=== PATIENT | female | born 1965 | race African-American/Black ===

== ENCOUNTER 2021-02-23 18:43 | Emergency (ER) | payer MEDICARE ==
[2021-02-23 20:03] VITALS: BP 148/75; PULSE 85; RESP 18; TEMP 98.7
--- NOTE | 2021-02-23 20:03 | ED ---
General Adult HPI - General Stated complaint: ear pain/off balance/sore throat - History of Present Illness Initial comments: 55-year-old female presents to emergency Department with a chief complaint of sore throat and ear pain. Patient also has a first dose of the Covid vaccine about 2 weeks ago. He reports most of the pain is located in the left ear. She does have history of seasonal ALLERGIES and states this feels like it. She took one dose of Claritin with no changes. Patient also reports a sore throat but denies any difficulty swallowing or changes in her voice. Denies any fevers or chills at home. - Related Data Allergies Allergy/AdvReac Type Severity Reaction Status Date / Time aloe vera [From Flexall] Allergy Nausea Verified 02/23/21 20:03 ibuprofen [From Motrin] Allergy Nausea Verified 02/23/21 20:03 menthol [From Flexall] Allergy Nausea Verified 02/23/21 20:03 naproxen [From Naprosyn] Allergy Nausea Verified 02/23/21 20:03 vitamin E (d-alpha Allergy Nausea Verified 02/23/21 20:03 tocopherol) [From Flexall] Review of Systems ROS Statement: Those systems with pertinent positive or pertinent negative responses have been documented in the HPI. ROS Other: All systems not noted in ROS Statement are negative. General Exam Limitations: no limitations General appearance: alert, in no apparent distress Head exam: Present: atraumatic, normocephalic, normal inspection Eye exam: Present: normal appearance, PERRL, EOMI Pupils: Present: normal accommodation ENT exam: Present: normal exam, normal oropharynx (Uvula midline. No tonsillar exudates, erythema or enlargement.), mucous membranes moist, TM's normal bilaterally (Fluid noted behind left tympanic membrane. No signs of otitis media or externa.), normal external ear exam Neck exam: Present: normal inspection, full ROM. Absent: tenderness Respiratory exam: Present: normal lung sounds bilaterally. Absent: respiratory distress Cardiovascular Exam: Present: regular rate, normal rhythm, normal heart sounds Extremities exam: Present: normal inspection, full ROM, normal capillary refill. Absent: tenderness Back exam: Present: normal inspection, full ROM. Absent: tenderness, CVA tenderness (R), CVA tenderness (L) Neurological exam: Present: alert, oriented X3 Psychiatric exam: Present: normal affect, normal mood Skin exam: Present: warm, dry, intact, normal color Course Vital Signs 02/23/21 20:00 Temperature 98.7 F Pulse Rate 85 Respiratory 18 Rate Blood Pressure 148/75 O2 Sat by Pulse 100 Oximetry Medical Decision Making - Medical Decision Making 55-year-old male presents to the emergency department with a chief complaint of ear pain and sore throat. On physical examination, she has fluid behind the left tympanic membrane but no signs of otitis media or otitis externa. Patient appears to have an upper respiratory infection. Covid swap pending. Patient states she does not want to wait for results and she will be notified over the phone. Advised to continue taking [id number] antihistamines. Strict return parameters were thoroughly discussed with patient was understanding and agreeable. Case discussed with Disposition Clinical Impression: Upper respiratory infection Disposition: HOME SELF-CARE Condition: Stable Instructions (If sedation given, give patient instructions): Earache (ED) Additional Instructions: Please return to the Emergency Department if symptoms worsen or any other concerns. Is patient prescribed a controlled substance at d/c from ED?: No Referrals: Nonstaff,Physician [Primary Care Provider] - 1-2 days Time of Disposition: 21:01
== END 2021-02-23 21:14 | disposition home or self-care (01) ==
LOC: EC 18:43
DX: J06.9 Acute upper respiratory infection, unspecified (principal)
CPT/HCPCS: 87635; 99282

== ENCOUNTER 2021-03-07 13:53 | Emergency (ER) | payer MEDICARE ==
[2021-03-07 14:11] VITALS: BP 121/67; PULSE 101; RESP 18; TEMP 98
--- NOTE | 2021-03-07 14:34 | ED ---
ENT HPI - General Chief complaint: ENT Stated complaint: Revisit ENT Time Seen by Provider: 03/07/21 14:13 Source: patient Mode of arrival: ambulatory Limitations: no limitations - History of Present Illness Initial comments: 55-year-old female with history of seasonal ALLERGIES presents to the emergency room with a chief complaint of sore throat, ear pain and headache. Patient reports symptoms were downgoing. Past 2-3 weeks. Patient reports taking an vezn-wce-qjfjauw Claritin with no significant improvement symptoms. Reports possible exposure to known Covid patient. Patient reports when her symptoms are this exacerbated, she typically is prescribed steroid which improved her symptoms significantly. Patient denies any fevers or chills at home. Denies any chest pain shortness of breath cough. Patient denies any other symptoms at this time. - Related Data Previous Rx's Medication Instructions Recorded predniSONE [Deltasone] 20 mg PO DAILY #5 tab 03/07/21 Allergies Allergy/AdvReac Type Severity Reaction Status Date / Time aloe vera [From Flexall] Allergy Nausea Verified 03/07/21 14:13 ibuprofen [From Motrin] Allergy Nausea Verified 03/07/21 14:13 menthol [From Flexall] Allergy Nausea Verified 03/07/21 14:13 naproxen [From Naprosyn] Allergy Nausea Verified 03/07/21 14:13 vitamin E (d-alpha Allergy Nausea Verified 03/07/21 14:13 tocopherol) [From Flexall] Review of Systems ROS Statement: Those systems with pertinent positive or pertinent negative responses have been documented in the HPI. ROS Other: All systems not noted in ROS Statement are negative. Past Medical History Past Medical History: No Reported History Past Surgical History: Hysterectomy Past Psychological History: No Psychological Hx Reported Smoking Status: Current every day smoker Past Alcohol Use History: None Reported Past Drug Use History: Marijuana General Exam Limitations: no limitations General appearance: alert, in no apparent distress Head exam: Present: atraumatic, normocephalic, normal inspection Eye exam: Present: normal appearance, PERRL, EOMI Pupils: Present: normal accommodation ENT exam: Present: normal exam, normal oropharynx (Uvula midline. No tonsillar erythema or pharyngeal enlargement or exudates.), mucous membranes moist, TM's normal bilaterally, normal external ear exam Neck exam: Present: normal inspection, full ROM. Absent: tenderness, lymphadenopathy Respiratory exam: Present: normal lung sounds bilaterally. Absent: respiratory distress, wheezes, rales, rhonchi, stridor Cardiovascular Exam: Present: regular rate, normal rhythm, normal heart sounds Extremities exam: Present: normal inspection, full ROM, normal capillary refill. Absent: tenderness, pedal edema, joint swelling Back exam: Present: normal inspection, full ROM. Absent: tenderness, CVA tenderness (R), CVA tenderness (L), muscle spasm Neurological exam: Present: alert, oriented X3 Psychiatric exam: Present: normal affect, normal mood Skin exam: Present: warm, dry, intact, normal color Course Vital Signs 03/07/21 14:07 Temperature 98.0 F Pulse Rate 101 H Respiratory 18 Rate Blood Pressure 121/67 O2 Sat by Pulse 100 Oximetry Medical Decision Making - Medical Decision Making 55-year-old female presents to emergency department with chief complaint of sore throat and ear pain and headache. On physical examination, no signs of infection at this time. She has been having symptoms for approximately 2-3 weeks and [id number] antihistamines are not helping. No signs of otitis media, otitis externa or mastoiditis. I will discharge the patient with a few days of prednisone. She states this typically works well for her. Return parameters were discussed with patient is understanding and agreeable. - Lab Data Lab Results 03/07/21 Range/Units 14:41 Coronavirus (PCR) Not Detected (Not Detectd) Disposition Clinical Impression: Discomfort of both ears Disposition: HOME SELF-CARE Instructions (If sedation given, give patient instructions): Earache (ED) Additional Instructions: Please return to the Emergency Department if symptoms worsen or any other concerns. Prescriptions: predniSONE [Deltasone] 20 mg PO DAILY #5 tab Is patient prescribed a controlled substance at d/c from ED?: No Referrals: Nonstaff,Physician [Primary Care Provider] - 1-2 days Time of Disposition: 14:33
== END 2021-03-07 14:44 | disposition home or self-care (01) ==
LOC: EC 13:53
DX: H92.03 Otalgia, bilateral (principal); F12.90 Cannabis use, unspecified, uncomplicated; F17.200 Nicotine dependence, unspecified, uncomplicated; Z20.822 Contact with and (suspected) exposure to COVID-19
CPT/HCPCS: 87635; 99284

== ENCOUNTER 2021-04-21 12:18 | Emergency (ER) | payer MEDICARE, OTHER ==
[2021-04-21 12:50] VITALS: BP 152/107; PULSE 102; RESP 18; TEMP 99
[2021-04-21] MEDS ORDERED: ACET/COD 300 MG/30 MG STARTER PACK 6 TAB BTL PO STA (13:14)
[2021-04-21] MEDS ORDERED: MORPHINE SULFATE 4 MG/ML SYRINGE IM STA (13:14)
--- NOTE | 2021-04-21 13:21 | ED ---
Neck Injury/Pain HPI - General Chief Complaint: Neck Pain/Injury Stated Complaint: Neck Pain Time Seen by Provider: 04/21/21 13:03 Source: patient, RN notes reviewed Mode of arrival: ambulatory Limitations: no limitations - History of Present Illness Initial Comments: 56-year-old female presents emergency Department chief complaint of neck pain, left arm pain. This is been ongoing issues. Patient states that she was living in [place] and states that she was getting injections in her shoulder for this. She has pain and nerve injury that raise on her arms. Patient states that she had eloped because her and she's been living in a half-way does not have a primary care physician. Patient states that she needs to have some follow-up. No new trauma no headache or dizziness. - Related Data Previous Rx's Medication Instructions Recorded predniSONE [Deltasone] 20 mg PO DAILY #5 tab 03/07/21 Cyclobenzaprine [Flexeril] 10 mg PO TID PRN #15 tab 04/21/21 Allergies Allergy/AdvReac Type Severity Reaction Status Date / Time aloe vera [From Flexall] Allergy Nausea Verified 04/21/21 12:50 ibuprofen [From Motrin] Allergy Nausea Verified 04/21/21 12:50 menthol [From Flexall] Allergy Nausea Verified 04/21/21 12:50 naproxen [From Naprosyn] Allergy Nausea Verified 04/21/21 12:50 vitamin E (d-alpha Allergy Nausea Verified 04/21/21 12:50 tocopherol) [From Flexall] Review of Systems ROS Statement: Those systems with pertinent positive or pertinent negative responses have been documented in the HPI. ROS Other: All systems not noted in ROS Statement are negative. Past Medical History Past Medical History: No Reported History Past Surgical History: Hysterectomy Additional Past Surgical History / Comment(s): shots in neck for pain Past Psychological History: No Psychological Hx Reported Smoking Status: Current every day smoker Past Alcohol Use History: None Reported Past Drug Use History: Marijuana General Exam Limitations: no limitations General appearance: alert, in no apparent distress Head exam: Present: atraumatic, normocephalic, normal inspection Neck exam: Present: normal inspection, tenderness (Paraspinal), full ROM. Absent: meningismus, lymphadenopathy Respiratory exam: Present: normal lung sounds bilaterally. Absent: respiratory distress, wheezes, rales, rhonchi, stridor Cardiovascular Exam: Present: regular rate, normal rhythm, normal heart sounds. Absent: systolic murmur, diastolic murmur, rubs, gallop, clicks Extremities exam: Present: other (Upper and lower extremity strength equal bilaterally neurovascular intact nontender full range of motion though reports while discomfort left shoulder) Course Vital Signs 04/21/21 12:46 Temperature 99 F Pulse Rate 102 H Respiratory 18 Rate Blood Pressure 152/107 O2 Sat by Pulse 100 Oximetry Medical Decision Making - Medical Decision Making Patient has ongoing issues related to nerve impingement, cervical radiculopathy. Patient will follow-up with primary and orthopedics. Disposition Clinical Impression: Cervical radiculopathy Disposition: HOME SELF-CARE Condition: Stable Instructions (If sedation given, give patient instructions): Cervical Radiculopathy (ED) Additional Instructions: Please return to the Emergency Department if symptoms worsen or any other concerns. Prescriptions: Cyclobenzaprine [Flexeril] 10 mg PO TID PRN #15 tab PRN Reason: Muscle Spasm Is patient prescribed a controlled substance at d/c from ED?: No Referrals: Kimber Senior DO [Doctor of Osteopathic Medicine] - 1-2 days Antonio Garrett [STAFF PHYSICIAN] - 1-2 days
== END 2021-04-21 13:56 | disposition home or self-care (01) ==
LOC: EC 12:18
DX: M54.12 Radiculopathy, cervical region (principal); F17.200 Nicotine dependence, unspecified, uncomplicated; Z91.09 Other allergy status, other than to drugs and biological substances; Z88.6 Allergy status to analgesic agent; Z91.018 Allergy to other foods
CPT/HCPCS: 99283